=== PATIENT | female | born 1950 | race Two or more races ===

== ENCOUNTER 2022-08-03 21:37 | Emergency (ER) | payer MEDICARE, MEDICAID, SELFPAY ==
[2022-08-03 22:12] VITALS: BP 117/81; PULSE 89; RESP 20; TEMP 36.3; O2SAT 100; BMI 24.0
--- NOTE | 2022-08-03 22:40 | ED_ITS ---
HPI - Altered Mental Status General Chief Complaint: Altered Mental Status Stated Complaint: confused,disoriented Time Seen by Provider: 08/03/22 22:25 Source: family Mode of arrival: ambulatory Limitations: no limitations History of Present Illness HPI narrative: Patient comes to the emergency room accompanied by her daughter. The patient has history of dementia and is unable to provide any history. Patient has no past. The patient's daughter explains that the patient arrived from [place] yesterday. Patient had already been diagnosed with Alzheimer's dementia. Patient's partner could no longer take care of her. Therefore, patient's daughter [place] the patient has been trying to leave the house, her partner. Patient's daughter is requesting additional help for home care. Related Data Previous Rx's Medication Instructions Recorded olanzapine 5 mg tablet 5 mg PO BEDTIME PRN insomnia #14 08/04/22 tabs Allergies Allergy/AdvReac Type Severity Reaction Status Date / Time No Known Allergies Allergy Verified 08/03/22 22:17 Review of Systems Review of Systems: Yes Unobtainable due to mental status (Alzheimer's dementia, patient voices no complaints) REPLACED BY [facility] Past Medical History Medical History (Updated 08/04/22 @ 01:01 by Leanne Lopes MD) Alzheimer's dementia CHF (congestive heart failure) CVA (cerebral vascular accident) Social History Social History Alcohol intake: never Smoked in Last 30 Days: No Use of substances other than those prescribed or required for medical reasons: No Advance Directives: No Advance Directives Information Provided: No Physical Exam ED Vital Signs: Vital Signs - 24 hr 08/03/22 22:12 08/04/22 00:04 Temperature 97.3 F 97.8 F Pulse Rate 89 87 Respiratory Rate 20 20 Blood Pressure 117/81 119/83 Pulse Oximetry 100 100 Oxygen Delivery Method Room Air Room Air BMI result Body Mass Index 24.0 Const Other: Appearance: Alert. Oriented X1. No acute distress. Eyes: Pupils equal, round and reactive to light. ENT: Pharynx normal. Neck: Normal inspection. Neck supple. No lymph nodes noted. No crepitus CVS: Normal heart rate and rhythm. Pulses normal. Normal S1 and S2 Respiratory: No respiratory distress. Breath sounds normal. No Wheezing. No rales Abdomen: Soft and nontender. No rigidity. No distention. Skin: Skin warm and dry. Normal skin color. Normal skin turgor. Extremities: No lower extremity edema. No Lacerations. No Rash Neuro: Oriented X 1. No motor deficit. No sensory deficit. Moving all extremities. No slurred speech. CN 2 through 12 grossly intact Psych: calm, cooperative, normal affect Course Course Course Narrative: -we will obtain basic labs -case management has been informed, consult pending Medical Decision Making Medical Decision Making [facility] Narrative: -case management spoke to the patient, unfortunately, at this time, there is not much that we can do for the patient. Patient does not have insurance. Patient has found a pair of pocket for 15/01 at home care. -patient's daughter agreeable to take the patient home, requesting that we give her medication to help her sleep ears and a prescription for home. -patient will be given olanzapine 5 mg p.o. here in the ED and patient will have a prescription for home. Discussed with the patient's daughter that this medication is not to be given during the day, as it will cause drowsiness and patient is at risk of falling. Differential Diagnosis Differential Diagnoses: The differential diagnosis associated with the presentation includes (Dementia, sundowning, insomnia) Lab Data [facility] Lab Attestation statement: I reviewed the patient's lab results. 08/03/22 23:28 08/03/22 23:28 Labs: Lab Results 08/03/22 08/03/22 08/03/22 Range/Units 23:28 23:28 23:28 WBC 7.0 (4.8-10.8) X10*3/uL RBC 3.05 L (4.20-5.50) X10*6/uL Hgb 9.3 L (12.0-16.0) g/dl Hct 28.9 L (37.0-47.0) % MCV 94.8 (80.0-98.0) fL MCH 30.5 (27.0-33.0) pg MCHC 32.2 (31.0-35.0) g/dl RDW 14.4 (11.0-16.0) % Plt Count 282 (160-400) X10*3/uL MPV 9.5 (9.4-12.3) fL Immature Gran % (Auto) 0.3 (0.0-0.4) % Neut % (Auto) 69.0 (45-73) % Lymph % (Auto) 22.8 (20-40) % [place] % (Auto) 7.2 (2-11) % Eos % (Auto) 0.6 (0-4) % Baso % (Auto) 0.1 (0-2) % Lymph # (Auto) 1.6 (1.2-4.9) X10*3/uL [place] # (Auto) 0.5 (0.1-1.2) X10*3/uL Eos # (Auto) 0.0 (0.0-0.4) X10*3/uL Baso # (Auto) 0.0 (0.0-0.2) X10*3/uL Abs Immat Gran (auto) 0.02 (0.00-0.03) X10*3/uL Absolute Neuts (auto) 4.8 (2.0-8.3) x10*3/uL Absolute Nucleated RBC 0.000 (0.0-0.012) X10*3/uL Nucleated RBC % (auto) 0.0 (0.0-0.2) /100WBC Sodium 139 (135-145) mmol/L Potassium 3.9 (3.3-5.1) mmol/L Chloride 104 (96-108) mmol/L Carbon Dioxide 23 (22-29) mmol/L Anion Gap 16 (12-20) BUN 21 H (9-16) mg/dL Creatinine 1.10 (0.5-1.4) mg/dL Estim Creat Clear Calc 36.2 Estimated GFR 49 Random Glucose 133 H (60-115) mg/dL Calcium 9.5 (8.4-10.2) mg/dL Total Bilirubin 0.4 (0.0-1.0) mg/dL Direct Bilirubin < 0.2 (0.0-0.5) mg/dL AST 15 (5-31) U/L ALT 10 (0-31) U/L Alkaline Phosphatase 62 (39-117) U/L Total Protein 6.8 (6.5-8.0) g/dL Albumin 4.2 (3.5-5.0) g/dL Urine Color Dark Yellow Urine Appearance Clear Urine pH 5.5 (5.0-9.0) Ur Specific [place] >= 1.030 H (1.005-1.025) Urine Protein 30 (1+) H (Neg-Trace) mg/dL Urine Glucose (UA) Negative (Negative) mg/dL Urine Ketones Trace (Negative) mg/dL Urine Blood Negative (Negative) Urine Nitrite Negative (Negative) Ur Leukocyte Esterase Trace H (Negative) Urine RBC 0-2 (0-2) /HPF Urine WBC 0-5 (0-5) /HPF Ur Squamous Epith Cells 0-2 (0-2) /HPF Urine Bacteria None Seen (None Seen) Hyaline Casts 3-5 (0-2) /LPF Discharge Plan Discharge Clinical Impression: Dementia, Insomnia Patient Disposition: Home, Self-Care Instructions: Dementia (ED), Insomnia (ED) Additional Instructions: Please follow-up with your primary care physician tomorrow. If you have any worsening or new symptoms, please return to the emergency room or call 911 Prescriptions: New olanzapine 5 mg tablet 5 mg PO BEDTIME PRN (Reason: insomnia) Qty: 14 0RF
--- NOTE | 2022-08-03 23:19 | PC.NURSE ---
pt comes in with daughter; has dementia but pt states she has gotten worse
--- NOTE | 2022-08-03 23:25 | MHC.CM.ED ---
Met with patient at request of Dr. Lopes. Pt has advanced dementia. Daughter, Brooke went to [place] yesterday to get her mother. States he mother's long time partner could no longer take care of her. Pt was wandering outside and police were summoned many times in [place] the [place] last [place]02. Daughter states her mother is very confused, doesn't know her and is constantly looking for her partner. Trying to leave the house. Daughter tells CM she had emergency first appointment with Dr. Alma Márquez in [place] today, but she had to pay and the doctor told her he has to review her records and would try to complete his review by Sunday. Daughter comes to the requesting help at home. Is not sure she can care for her mother at home. States she has to work on Sunday. Explained to daughter that her mother would need Medicare in the and [employer]. Patient has Medicare from [place]. Explained that she would need to hire private pay [employer] WORKER's at this point to help at home, and that none of this happens immediately. It takes time. Explained that the [facility] needs a medical reason to see patients, and they do not provide [employer] WORKER's either. Given brochure for financial services. Daughter requesting psych to order some medications for her mother. Explained that no medications will really help her mother's Alzheimer's. Perhaps medications might help with sleep and aggression, but it's unclear. Dr. Lopes is aware of above conversation. Will complete medical workup and labs and will speak with daughter. CM will follow for any discharge needs.
[2022-08-03 23:33] LABS: MANUAL DIFF FLAG NO
[2022-08-03 23:35] LABS: Basophils Percent Auto 0.1 % (0-2); Eosinophils Percent Auto 0.6 % (0-4); Hematocrit 28.9 % (37.0-47.0); Hemoglobin 9.3 g/dl (12.0-16.0); Imm Gran Abs Auto 0.02 X10*3/uL (0.00-0.03); Imm Gran Pct Auto 0.3 % (0.0-0.4); Lymphocytes Absolute Auto 1.6 X10*3/uL (1.2-4.9); Lymphocytes Percent Auto 22.8 % (20-40); Mean Corpuscular HGB Conc 32.2 g/dl (31.0-35.0); Mean Corpuscular Hemoglobin 30.5 pg (27.0-33.0); Mean Corpuscular Volume 94.8 fL (80.0-98.0); Mean Platelet Volume 9.5 fL (9.4-12.3); Monocytes Absolute Auto 0.5 X10*3/uL (0.1-1.2); Monocytes Percent Auto 7.2 % (2-11); Neutrophils Absolute Auto 4.8 x10*3/uL (2.0-8.3); Platelet Count 282 X10*3/uL (160-400); Red Blood Count 3.05 X10*6/uL (4.20-5.50); Red Cell Distribution Width 14.4 % (11.0-16.0)
[2022-08-03 23:48] LABS: Appearance Urine Clear; Color Urine Dark Yellow; Glucose Urine UA Negative (Negative); Leukocyte Esterase Urine Trace (Negative); Nitrite Urine Negative (Negative); PH 5.5 (5.0-9.0); Specific Gravity - Urine >= 1.030 (1.005-1.025); UMIC TRIGGER UACC YES; Urine Blood Negative (Negative); Urine Ketones Trace mg/dL (Negative); Urine Protein 30 (1+) mg/dL (Neg-Trace)
[2022-08-03 23:53] LABS: Alanine Aminotransferase 10 U/L (0-31); Albumin Level 4.2 g/dL (3.5-5.0); Alkaline Phosphatase 62 U/L (39-117); Anion Gap 16 (12-20); Aspartate Amino Transferase 15 U/L (5-31); Bilirubin Direct < 0.2 mg/dL (0.0-0.5); Bilirubin Total 0.4 mg/dL (0.0-1.0); Blood Urea Nitrogen 21 mg/dL (9-16); Calcium 9.5 mg/dL (8.4-10.2); Carbon Dioxide 23 mmol/L (22-29); Chloride 104 mmol/L (96-108); Creatinine Clr Calc Pharmacy 36.2; Estimated Glomerular Filt Rate 49; Glucose Random 133 mg/dL (60-115); Potassium 3.9 mmol/L (3.3-5.1); Sodium 139 mmol/L (135-145); Total Protein 6.8 g/dL (6.5-8.0)
[2022-08-04 00:04] VITALS: BP 119/83; PULSE 87; RESP 20; TEMP 36.6; O2SAT 100
[2022-08-04 00:14] LABS: Bacteria Urine None Seen (None Seen); RBC Urine 0-2 /HPF (0-2); Squamous Epithelial Cell Urine 0-2 /HPF (0-2); WBC Urine 0-5 /HPF (0-5)
--- NOTE | 2022-08-04 00:17 | PC.NURSE ---
pt keeps wandering throughout the dept and has to be redirected to her bed
[2022-08-04] MEDS: OLANZapine 5 MG TABLET PO (01:05)
== END 2022-08-04 01:10 | disposition home or self-care (01) ==
PROVIDERS: Emergency Provider Emergency Medicine; PCP Internal Medicine
DX: G30.9 Alzheimer's disease, unspecified (principal); F02.80 Dementia in other diseases classified elsewhere, unspecified severity, without behavioral disturbance, psychotic disturbance, mood disturbance, and anxiety; G47.00 Insomnia, unspecified; I50.9 Heart failure, unspecified; Z86.73 Personal history of transient ischemic attack (TIA), and cerebral infarction without residual deficits
CPT/HCPCS: 36415; 51701; 80048; 80076; 81001; 85025; 99284

== ENCOUNTER 2025-05-12 11:33 | Inpatient (IN) | payer OTHER, SELFPAY ==
--- NOTE | ~2025-05-12 | CT_ITS ---
EXAMINATION: CT ABDOMEN AND PELVIS WITHOUT CONTRAST CLINICAL INFORMATION: Dehydration, not eating or drinking, vomiting. 75-year-old female. COMPARISON: None available. TECHNIQUE: Multidetector volumetric imaging was performed from the superior aspect of the liver through the pubic symphysis. Sagittal and coronal reformatted images were obtained on the technologist's workstation. This CT examination was performed using dose optimization techniques as appropriate, variously including the following: *Automated exposure control *Adjustment of mA and/or kV according to patient size (this includes techniques or standardized protocols for targeted exams where dose is matched to indication/reason for exam; i.e. extremities or head) *Use of iterative reconstruction technique FINDINGS: LUNG BASES: Lung bases are grossly clear allowing for mild motion artifact. There is mild elevation of the left hemidiaphragm. There is borderline cardiac enlargement. There are moderate coronary calcifications. There is no pericardial effusion. There is a small type hiatus hernia. LIVER, GALLBLADDER, AND BILIARY TREE: The unenhanced liver demonstrates numerous cysts, the largest in the right hepatic lobe measuring 6.7 x 5.1 cm in axial plane. No definite suspicious focal hepatic lesion or biliary ductal dilatation is present. The main portal vein is somewhat prominent suggesting possible portal hypertension. The gallbladder is unremarkable with no evidence of radiopaque gallstones, gallbladder wall thickening, or obvious pericholecystic inflammatory changes. PANCREAS: Unremarkable. SPLEEN: There are tiny punctate granulomata. Unenhanced spleen is otherwise normal. ADRENAL GLANDS: Unremarkable. KIDNEYS AND URETERS: The kidneys are normal in size, shape, and attenuation. No hydronephrosis, hydroureter, or calculi seen. No perinephric stranding. In the lower pole of the left kidney, there is a large cyst measuring 6.1 x 5.6 cm in axial plane. 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 There is a hyperattenuating cyst in the left lateral kidney midpole measuring 1.3 cm. BLADDER: Unremarkable. GASTROINTESTINAL TRACT: There is moderate constipation throughout the colon and rectum. There is no pathologic bowel dilatation appreciated. Probable small type I hiatus hernia. Stomach is largely decompressed. Duodenal sweep is unremarkable. Small bowel is grossly normal in caliber and course. No definite wall thickening or gross inflammation allowing for noncontrast examination. There is no CT evidence of acute appendicitis. There is a mobile cecum present. There is scattered diverticulosis of colon present. ABDOMINAL WALL: No significant hernia is appreciated. LYMPH NODES: No abnormal lymphadenopathy. VASCULAR: Moderate to heavy calcification of the aorta and iliac arteries, without aneurysm. PELVIC VISCERA: Senescent uterus. No adnexal masses. OSSEOUS STRUCTURES: No suspicious lytic or blastic bone lesions. Mild degenerative changes of the spine and bilateral hip joints. CT/CT abdomen pelvis wo IV con IMPRESSION: 1. No acute findings in the abdomen or pelvis. 2. Moderate constipation. 3. Numerous ancillary findings as discussed in the body of the report. Electronically signed by: Francisco Harrison MD 05/12/2025 02:08 PM SRINIVAS
--- NOTE | ~2025-05-12 | US_ITS ---
EXAMINATION: US ABDOMEN LIMITED CLINICAL INFORMATION: Elevated liver enzymes. COMPARISON: Correlated to noncontrast CT abdomen and pelvis dated May 12, 2025. TECHNIQUE: Real-time ultrasound of the right upper quadrant abdomen using a scalpel technique. Limited exam. FINDINGS: Liver measures 17 cm in maximum length. There are multiple, different sizes, round and lobulated anechoic lesions without gross septations or nodular components or flow on color Doppler interrogation throughout the hepatic parenchyma, the largest measures 7 cm. Main portal vein measures 1.5 cm in maximum diameter with normal patency and hepatopedal flow direction. Gallbladder is fluid-filled nondistended. Gallbladder wall measures 2.6 mm. No pericholecystic fluid collection. Common bile duct measures 4 mm. No ascites. US/US abdomen limited IMPRESSION: Multiple cystic lesions, hepatic, largest 7 cm. No gross cholelithiasis or choledocholithiasis. Recommend further imaging assessment of the liver with IV contrast either CT versus MRI. Electronically signed by: Franco Mobley MD 05/13/2025 03:31 PM EST
--- NOTE | ~2025-05-12 | XR_ITS ---
EXAMINATION: XR CHEST CLINICAL INFORMATION: Weakness COMPARISON: None available. TECHNIQUE: Frontal view of the chest was obtained. FINDINGS: The cardiac, hilar, and mediastinal contours are normal. Mild aortic mural calcification. The lungs are clear bilaterally. No pneumothorax or effusion. No focal osseous or soft tissue abnormality. XR/XR chest 1V IMPRESSION: No active pulmonary disease. Electronically signed by: Francisco Harrison MD 05/12/2025 01:34 PM EST
[2025-05-12 11:48] VITALS: BP 125/78; PULSE 85; RESP 18; TEMP 36.6; O2SAT 98; BMI 25.8
--- NOTE | 2025-05-12 11:48 | ED.GENADULT ---
HPI - General Adult General Chief complaint: Recheck/Abnormal Lab/Rx Stated complaint: Abnormal Labs Time Seen by Provider: 05/12/25 12:23 Source: patient, family and old records reviewed Mode of arrival: ambulatory Limitations: other (Dementia) History of Present Illness ED Provider: SHAN DANIELS narrative: 75-year-old female with past medical history of dementia, CVA, CHF, rectal bleeding here with complaint of not feeling well for 1 week. She has not been eating or drinking much but only sleeping for family. She did vomit at her adult day program yesterday. But then she had a full normal breakfast today. Her family notes no recent trauma, fevers. They state if she was in pain she would not be able to express it. She saw her PCP on May 06 they did labs but did not call until today and the family was told she was in kidney failure and liver failure. They did have the patient hold metformin. The daughter states given the dementia it is hard to get any other symptoms from her. complaint: Abnormal lab Onset (ago): day(s) (Visit was on May 06) Radiation: non-radiation Severity: moderate Relieving factors: none Exacerbating factors: movement Associated symptoms: loss of appetite, malaise and weakness Treatments prior to arrival: none Related Data Home Medications ?Medication ?Instructions ?Recorded ?Confirmed Kimberly Nugents Kidz 2 gummy PO BEDTIME PRN Sleep 05/12/25 05/12/25 amlodipine 5 mg tablet 5 mg PO DAILY 05/12/25 05/12/25 dapagliflozin propanediol 10 mg 10 mg PO DAILY 05/12/25 05/12/25 tablet (Farxiga) docusate sodium 100 mg capsule 100 mg PO BID PRN Constipation 05/12/25 05/12/25 donepezil 10 mg tablet 10 mg PO BEDTIME 05/12/25 05/12/25 ferrous sulfate 325 mg (65 mg 325 mg PO Q2D@0900 05/12/25 05/12/25 iron) tablet memantine 5 mg tablet 5 mg PO BID 05/12/25 05/12/25 metoprolol succinate 50 mg 50 mg PO DAILY 05/12/25 05/12/25 tablet,extended release 24 hr pantoprazole 40 mg tablet,delayed 40 mg PO DAILY 05/12/25 05/12/25 release quetiapine 25 mg tablet 25 mg PO BID@0900,2100 05/12/25 05/12/25 quetiapine 50 mg tablet 50 mg PO BEDTIME 05/12/25 05/12/25 rosuvastatin 20 mg tablet 20 mg PO BEDTIME 05/12/25 05/12/25 vibegron 75 mg tablet (Gemtesa) 75 mg PO DAILY 05/12/25 05/12/25 Allergies Allergy/AdvReac Type Severity Reaction Status Date / Time No Known Allergies Allergy Verified 05/12/25 11:50 Review of Systems Review of Systems: ROS unable to be obtained due to dementia [facility] Past Medical History Attestation statement: The following information was validated with the patient. Source: old records reviewed Medical History CHF (congestive heart failure) CVA (cerebral vascular accident) Alzheimer's dementia Social History Social History Household Members: Unknown / Unable to assess Housing: Unknown / Unable to assess Alcohol intake: never Patient Tobacco Use Status: Never used Tobacco Smoked in Last 30 Days: No Use of substances other than those prescribed or required for medical reasons: No Advance Directives: Yes Advance Directives Information Provided: Yes Advance Directives on File: No Advance Directives Date on File: 05/12/25 Do you have a plan to hurt others: No Plan Recently lost weight without trying: Unsure Nutrition Risks: No Nutritional Risk Patient : No : No Poor oral hygiene: No Physical Exam ED Vital Signs: Vital Signs - 24 hr 05/12/25 11:48 05/12/25 12:21 05/12/25 15:44 Temperature 98 F 99.1 F 97.4 F Pulse Rate 85 81 89 Respiratory Rate 18 14 18 Blood Pressure 125/78 144/81 H 140/93 H Pulse Oximetry 98 96 99 Oxygen Delivery Method Room Air Room Air Room Air 05/12/25 18:41 Temperature 98.6 F Pulse Rate 68 Respiratory Rate 11 L Blood Pressure 141/94 H Pulse Oximetry 99 Oxygen Delivery Method Room Air BMI result Body Mass Index 25.8 Appearance: Alert. Confused No acute distress. Eyes: Pupils equal, round and reactive to light. ENT: Pharynx dry mucous membranes Neck: Normal inspection. Neck supple. CVS: Normal heart rate and rhythm. Pulses normal. Respiratory: No respiratory distress. Breath sounds normal. Abdomen: Soft and nontender. Skin: Skin warm and dry. Normal skin color. Extremities: No lower extremity edema. Neuro: Confused No motor deficit. No sensory deficit. Course Course Course Narrative: This is an RME: Additional HPI, ROS, PE not included below will be deferred to primary provider. RME assessment and note performed by: Cristine Pritchard PA-C This is a [id number]-female, with a hx of advanced stage dementia, diabetes on metformin and farxiga, HLD, CVA, who presents to the ER, accompanied by her daughter, with a complaint of abnormal labs. Was told that she was in liver and kidney failure. Was at a day program yesterday and had an episode of nausea and vomiting. Plan: Labs, EKG, further ER eval needed Reevaluation(s) Reevaluation #1: Her BMP hemolyzed I did sign out repeat BMP follow up Dr. Lopes at 16:00 Medications Administered Generic Name Dose Route Start Last Admin Trade Name Freq PRN Reason Stop Dose Admin Atorvastatin Calcium 80 mg 05/12/25 22:25 05/12/25 22:35 Atorvastatin Calcium 80 Mg Tablet PO 80 mg BEDTIME SHAKEEL Administration Donepezil HCl 10 mg 05/12/25 22:25 05/12/25 22:40 Donepezil Hcl 10 Mg Tablet PO 10 mg BEDTIME SHAKEEL Administration Heparin Sodium (Porcine) 5,000 unit 05/12/25 19:45 05/13/25 02:55 Heparin Sodium,Porcine 5,000 Unit/Ml Vial SUBCUT 5,000 unit Q8H SHAKEEL Administration Lactated Ringer's 1,000 mls @ 100 mls/hr 05/12/25 19:45 05/13/25 06:09 Lr IVCONT 100 mls/hr .Q10H SHAKEEL Administration Melatonin 6 mg 05/12/25 19:39 05/12/25 22:35 Melatonin 3 Mg Tablet PO 6 mg BEDTIME PRN Administration Insomnia Memantine 5 mg 05/12/25 22:25 05/12/25 22:35 Memantine Hcl 5 Mg Tablet PO 5 mg BID SHAKEEL Administration Omeprazole 20 mg 05/13/25 06:30 05/13/25 05:48 Omeprazole 20 Mg Capsule. PO Not Given DAILY@0630 SHAKEEL Quetiapine Fumarate 25 mg 05/12/25 22:25 05/12/25 22:35 Quetiapine Fumarate 25 Mg Tablet PO 25 mg BID@0900,2100 SHAKEEL Administration Sodium Chloride 3 ml 05/13/25 00:00 05/13/25 00:09 0.9 % Sodium Chloride Flush 3 Ml Syringe IVFLUSH Not Given QSHIFT SHAKEEL Discontinued Medications Generic Name Dose Route Start Last Admin Trade Name Davonte PRN Reason Stop Dose Admin Lactated Ringer's 1,000 mls @ 999 mls/hr 05/12/25 12:55 05/12/25 14:17 Lr IV 05/12/25 13:55 Infused .Q1H1M ONE Infusion Lactated Ringer's 1,000 mls @ 999 mls/hr 05/12/25 13:54 05/12/25 14:59 Lr IV 05/12/25 14:54 Infused .Q1H1M ONE Infusion Lactulose 20 gm 05/12/25 15:09 05/12/25 15:36 Lactulose 20 Gm/30 Ml Solution PO 05/12/25 15:10 20 gm ONCE ONE Administration Olanzapine 10 mg 05/12/25 13:18 05/12/25 13:21 Olanzapine Odt 10 Mg Tab.Rapdis TRANSLINGU 05/12/25 13:19 10 mg ONCE ONE Administration Olanzapine 5 mg 05/13/25 02:22 05/13/25 02:53 Olanzapine 10 Mg Vial IM 05/13/25 02:23 5 mg ONCE ONE Administration Medical Decision Making Medical Decision Making MDM Narrative: 75-year-old female with past medical history of dementia, CVA, CHF here with complaint of failure to thrive over the last week, she is not eating or drinking much. She did vomit yesterday but then ate a full breakfast today. She is unable to tell us she is in any pain. She was sent for liver failure and renal failure I agree she has DEDE but there is no suggestion of liver failure on exam. At this time I am going to start her on IV fluids, obtain CT scan of abdomen to assess for any acute pathology causing her symptoms, she will also get a CPK level. Given her inability to give a history there is a wide differential I received sign-out from my colleague Dr. Donovan After 2 L of IV fluid, patient's creatinine did not improve much. Patient reports that she had an episode of vomiting yesterday. However, the labs indicated that she has a acute kidney injury were drawn over a week ago and even with IV fluids, she did not respond well. I discussed the patient with our hospitalist Dr. Mckinney, patient being admitted I discussed the above-mentioned with the patient's family, all agree to admission. Differential Diagnosis Differential Diagnoses: The differential diagnosis associated with the presentation includes DEDE, biliary colic, urinary pathology, mass, failure to thrive, urinary Admission/Observation Consideration of admission/observation: Escalation of care including admission/observation considered Lab Data MDM Lab Attestation statement: I reviewed the patient's lab results. She does have mild DEDE She has normal CPK, she has no urinary tract infection 05/13/25 05:43 05/13/25 05:43 Labs: Lab Results 05/12/25 05/12/25 05/12/25 Range/Units 12:08 12:51 15:33 WBC 4.7 L (4.8-10.8) X10*3/uL RBC 3.49 L (4.20-5.50) X10*6/uL Hgb 10.7 L (12.0-16.0) g/dl Hct 33.2 L (37.0-47.0) % MCV 95.1 (80.0-98.0) fL MCH 30.7 (27.0-33.0) pg MCHC 32.2 (31.0-35.0) g/dl RDW 14.6 (11.0-16.0) % Plt Count 148 L D (160-400) X10*3/uL MPV 10.1 (9.4-12.3) fL Immature Gran % (Auto) 0.4 (0.0-0.4) % Neut % (Auto) 61.4 (45-73) % Lymph % (Auto) 31.6 (20-40) % [place] % (Auto) 5.8 (2-11) % Eos % (Auto) 0.6 (0-4) % Baso % (Auto) 0.2 (0-2) % Lymph # (Auto) 1.5 (1.2-4.9) X10*3/uL [place] # (Auto) 0.3 (0.1-1.2) X10*3/uL Eos # (Auto) 0.0 (0.0-0.4) X10*3/uL Baso # (Auto) 0.0 (0.0-0.2) X10*3/uL Abs Immat Gran (auto) 0.02 (0.00-0.03) X10*3/uL Absolute Neuts (auto) 2.9 (2.0-8.3) x10*3/uL Absolute Nucleated RBC 0.000 (0.0-0.012) X10*3/uL Nucleated RBC % (auto) 0.0 (0.0-0.2) /100WBC Sodium 140 (135-145) mmol/L Potassium 3.8 (3.3-5.1) mmol/L Chloride 110 H (96-108) mmol/L Carbon Dioxide 24 (22-29) mmol/L Anion Gap 10 L (12-20) BUN 32 H (9-16) mg/dL Creatinine 1.69 H (0.5-1.4) mg/dL Estim Creat Clear Calc 23.3 Estimated GFR 30 Random Glucose 197 H (60-115) mg/dL Calcium 9.0 (8.4-10.2) mg/dL Magnesium 2.2 (1.6-2.6) mg/dL Total Bilirubin 0.5 (0.0-1.0) mg/dL Direct Bilirubin 0.2 (0.0-0.5) mg/dL AST 36 H (5-31) U/L ALT 50 H (0-31) U/L Alkaline Phosphatase 67 (39-117) U/L Total Creatine Kinase 69 (26-140) U/L Troponin I High Sens 16.4 (<3.5-17.0) ng/L Total Protein 6.0 L (6.5-8.0) g/dL Albumin 4.0 (3.5-5.0) g/dL Lipase 50 (8-78) U/L Urine Color Yellow Urine Appearance Clear Urine pH 7.5 (5.0-9.0) Ur Specific [place] 1.015 (1.005-1.025) Urine Protein 30 (1+) H (Neg-Trace) mg/dL Urine Glucose (UA) >=1000 H (Negative) mg/dL Urine Ketones Negative (Negative) mg/dL Urine Blood Negative (Negative) Urine Nitrite Negative (Negative) Ur Leukocyte Esterase Trace H (Negative) Urine RBC 0-2 (0-2) /HPF Urine WBC 6-10 H (0-5) /HPF Ur Squamous Epith Cells 0-2 (0-2) /HPF Urine Bacteria None Seen (None Seen) Hyaline Casts 0-2 (0-2) /LPF Influenza Type A (PCR) NEGATIVE (Negative) Influenza Type B (PCR) NEGATIVE (Negative) RSV RNA Qual (PCR) NEGATIVE (Negative) SARS-CoV-2 RNA (RT-PCR) NEGATIVE (Negative) 05/12/25 Range/Units 16:45 WBC (4.8-10.8) X10*3/uL RBC (4.20-5.50) X10*6/uL Hgb (12.0-16.0) g/dl Hct (37.0-47.0) % MCV (80.0-98.0) fL MCH (27.0-33.0) pg MCHC (31.0-35.0) g/dl RDW (11.0-16.0) % Plt Count (160-400) X10*3/uL MPV (9.4-12.3) fL Immature Gran % (Auto) (0.0-0.4) % Neut % (Auto) (45-73) % Lymph % (Auto) (20-40) % [place] % (Auto) (2-11) % Eos % (Auto) (0-4) % Baso % (Auto) (0-2) % Lymph # (Auto) (1.2-4.9) X10*3/uL [place] # (Auto) (0.1-1.2) X10*3/uL Eos # (Auto) (0.0-0.4) X10*3/uL Baso # (Auto) (0.0-0.2) X10*3/uL Abs Immat Gran (auto) (0.00-0.03) X10*3/uL Absolute Neuts (auto) (2.0-8.3) x10*3/uL Absolute Nucleated RBC (0.0-0.012) X10*3/uL Nucleated RBC % (auto) (0.0-0.2) /100WBC Sodium 142 (135-145) mmol/L Potassium 3.4 (3.3-5.1) mmol/L Chloride 111 H (96-108) mmol/L Carbon Dioxide 24 (22-29) mmol/L Anion Gap 10 L (12-20) BUN 28 H (9-16) mg/dL Creatinine 1.56 H (0.5-1.4) mg/dL Estim Creat Clear Calc 25.2 Estimated GFR 32 Random Glucose 178 H (60-115) mg/dL Calcium 9.0 (8.4-10.2) mg/dL Magnesium (1.6-2.6) mg/dL Total Bilirubin (0.0-1.0) mg/dL Direct Bilirubin (0.0-0.5) mg/dL AST (5-31) U/L ALT (0-31) U/L Alkaline Phosphatase (39-117) U/L Total Creatine Kinase (26-140) U/L Troponin I High Sens (<3.5-17.0) ng/L Total Protein (6.5-8.0) g/dL Albumin (3.5-5.0) g/dL Lipase (8-78) U/L Urine Color Urine Appearance Urine pH (5.0-9.0) Ur Specific [place] (1.005-1.025) Urine Protein (Neg-Trace) mg/dL Urine Glucose (UA) (Negative) mg/dL Urine Ketones (Negative) mg/dL Urine Blood (Negative) Urine Nitrite (Negative) Ur Leukocyte Esterase (Negative) Urine RBC (0-2) /HPF Urine WBC (0-5) /HPF Ur Squamous Epith Cells (0-2) /HPF Urine Bacteria (None Seen) Hyaline Casts (0-2) /LPF Influenza Type A (PCR) (Negative) Influenza Type B (PCR) (Negative) RSV RNA Qual (PCR) (Negative) SARS-CoV-2 RNA (RT-PCR) (Negative) Independent Interpretation I performed an independent interpretation of an: EKG, Plain X-Ray (No pneumonia) and CT Scan (Shows constipation) Interpretation: Rate: 79 Rhythm: Normal sinus Marshall: Left, LVH Normal P waves. Normal PHONG. Normal QRS complex. ST T wave : Normal no ST-elevation qTC: 451 prior studies: No prior The study has been interpreted contemporaneously by me. . Radiology Impression Discussion of test interpretation with radiology: I have reviewed the radiologist's reading. Independent Historian Clinical information obtained from an independent historian. History obtained from or confirmed by: Other (Daughter) External Record Review External record reviewed: Inpatient record, Outpatient record and Prior outpatient labs Critical Care Time Critical Care Time Critical Care Time: Yes Total Critical Care Time: 40 Attestation: I have personally provided critical care time. Time includes review of lab data, radiology results, discussion with consultants, and monitoring for potential decompensation. Intervention performed as documented. Discharge Plan Discharge Clinical Impression: Adult failure to thrive, Acute dehydration Constipation Qualifiers: Constipation type: unspecified constipation type Qualified Code(s): K59.00 - Constipation, unspecified Patient Disposition: Admitted As Inpatient Interventions: Admission Worksheet (ED) Last Done: 05/12/25 23:19 Discharge Date/Time: 05/13/25 01:52
--- NOTE | 2025-05-12 11:50 | ECG_ITS ---
Test Reason : abn labs Blood Pressure : */* mmHG Vent. Rate : 79 BPM Atrial Rate : 79 BPM P-R Int : 172 ms QRS Dur : 100 ms QT Int : 394 ms P-R-T Axes : 34 -30 23 degrees QTcB Int : 451 ms Normal sinus rhythm Left axis deviation Moderate voltage criteria for LVH, may be normal variant ( R in aVL , Nathalie product ) Abnormal ECG No previous ECGs available Referred By: Cristine Pritchard Electronically Signed By: RUPERTO SIMS
[2025-05-12 12:17] LABS: MANUAL DIFF FLAG NO
[2025-05-12 12:21] VITALS: BP 144/81; PULSE 81; RESP 14; TEMP 37.3; O2SAT 96
[2025-05-12 12:28] LABS: Hematocrit 33.2 % (37.0-47.0); Hemoglobin 10.7 g/dl (12.0-16.0); Imm Gran Abs Auto 0.02 X10*3/uL (0.00-0.03); Imm Gran Pct Auto 0.4 % (0.0-0.4); Lymphocytes Absolute Auto 1.5 X10*3/uL (1.2-4.9); Mean Corpuscular HGB Conc 32.2 g/dl (31.0-35.0); Mean Corpuscular Hemoglobin 30.7 pg (27.0-33.0); Mean Corpuscular Volume 95.1 fL (80.0-98.0); NRBC Abs Auto 0.000 X10*3/uL (0.0-0.012); NRBC Pct Auto 0.0 /100WBC (0.0-0.2); Platelet Count 148 X10*3/uL (160-400); Red Blood Count 3.49 X10*6/uL (4.20-5.50); White Blood Count 4.7 X10*3/uL (4.8-10.8)
[2025-05-12 12:33] LABS: Alanine Aminotransferase 50 U/L (0-31); Albumin Level 4.0 g/dL (3.5-5.0); Alkaline Phosphatase 67 U/L (39-117); Anion Gap 10 (12-20); Aspartate Amino Transferase 36 U/L (5-31); Blood Urea Nitrogen 32 mg/dL (9-16); Calcium 9.0 mg/dL (8.4-10.2); Carbon Dioxide 24 mmol/L (22-29); Chloride 110 mmol/L (96-108); Creatinine Clr Calc Pharmacy 23.3; Estimated Glomerular Filt Rate 30; Lipase 50 U/L (8-78); Magnesium 2.2 mg/dL (1.6-2.6); Potassium 3.8 mmol/L (3.3-5.1); Sodium 140 mmol/L (135-145); Total Protein 6.0 g/dL (6.5-8.0)
[2025-05-12 12:40] LABS: Troponin-I High Sensitivity 16.4 ng/L (<3.5-17.0)
[2025-05-12] MEDS: Lactated Ringers 1,000 ML 999 ML IV ×2 (13:16→13:58)
--- NOTE | 2025-05-12 13:17 | PC.NURSE ---
Addendum entered by Tessa Méndez RN 05/12/25 13:22: pt unable to have CT completed d/t restlessness. provider notified/aware. ODT zyprexa administered w/o difficulty. effectiveness pending. daughter remains bedside. Original Note: 20gIV placed to right forearm - wrapped w/ curex for safety precautions. IVF infusing per provider order. pt remains extremely restless/attempting to get OOB w/o assistance. difficult to redirect. daughter remains bedside for support. plan of care ongoing.
[2025-05-12] MEDS: OLANZapine ODT 10 MG TAB.RAPDIS TRANSLINGU (13:21)
[2025-05-12 13:33] LABS: Resp Syncy Virus RNA Qual PCR NEGATIVE (Negative); SARS COV2 PCR INHOUSE NEGATIVE (Negative)
[2025-05-12 15:44] VITALS: BP 140/93; PULSE 89; RESP 18; TEMP 36.3; O2SAT 99
[2025-05-12 15:44] LABS: Appearance Urine Clear; Glucose Urine UA >=1000 mg/dL (Negative); PH 7.5 (5.0-9.0); Specific Gravity - Urine 1.015 (1.005-1.025); UMIC TRIGGER UACC YES
[2025-05-12 15:49] LABS: UACC Culture Trigger YES
[2025-05-12 17:05] LABS: Anion Gap 10 (12-20); Blood Urea Nitrogen 28 mg/dL (9-16); Calcium 9.0 mg/dL (8.4-10.2); Carbon Dioxide 24 mmol/L (22-29); Chloride 111 mmol/L (96-108); Creatinine Clr Calc Pharmacy 25.2; Estimated Glomerular Filt Rate 32; Potassium 3.4 mmol/L (3.3-5.1); Sodium 142 mmol/L (135-145)
[2025-05-12 18:41] VITALS: BP 141/94; PULSE 68; RESP 11; TEMP 37; O2SAT 99
--- NOTE | 2025-05-12 19:41 | PM.IMHP ---
History of Present Illness Date of Service: 05/12/25 Chief Complaint: abnormal labs 75-year-old female with a past medical history of history, HLD, dementia, CVA, CHF, history of GI bleed; presented to the hospital with a chief complaint of abnormal labs noted the PCP's office. Per family patient was not feeling well yesterday; at the daycare patient had an episode of vomiting. Denies having any pain. Patient at baseline has dementia and nonverbal; mental status currently at baseline. Went to her PCP's office and has labs done noted to have elevated creatinine subsequently asked her to go to the ER for further evaluation. Review of all other systems is limited. Patient is alert and awake and lying in the bed comfortable. ER course: Per ER team, patient's exam was benign; on labs noted have elevated creatinine; also has liver enzymes slightly elevated above upper normal limits. [facility] Medical History CHF (congestive heart failure) CVA (cerebral vascular accident) Alzheimer's dementia Social History Household Members: Unknown / Unable to assess Housing: Unknown / Unable to assess Alcohol intake: never Patient Tobacco Use Status: Never used Tobacco Smoked in Last 30 Days: No Use of substances other than those prescribed or required for medical reasons: No Advance Directives: Yes Advance Directives Information Provided: Yes Advance Directives on File: No Advance Directives Date on File: 05/12/25 Do you have a plan to hurt others: No Plan Recently lost weight without trying: Unsure Nutrition Risks: No Nutritional Risk Patient : No : No Poor oral hygiene: No Meds Allergies Allergy/AdvReac Type Severity Reaction Status Date / Time No Known Allergies Allergy Verified 05/12/25 11:50 Home Medications ?Medication ?Instructions ?Recorded ?Confirmed ?Last Taken ?Type Leodanks Pure Zzzs Kidz 2 gummy PO BEDTIME PRN Sleep 05/12/25 05/12/25 05/11/25 History amlodipine 5 mg tablet 5 mg PO DAILY 05/12/25 05/12/25 05/12/25 History dapagliflozin propanediol 10 mg 10 mg PO DAILY 05/12/25 05/12/25 05/12/25 History tablet (Farxiga) docusate sodium 100 mg capsule 100 mg PO BID PRN Constipation 05/12/25 05/12/25 Unknown History donepezil 10 mg tablet 10 mg PO BEDTIME 05/12/25 05/12/25 05/11/25 History ferrous sulfate 325 mg (65 mg 325 mg PO Q2D@0900 05/12/25 05/12/25 05/12/25 History iron) tablet memantine 5 mg tablet 5 mg PO BID 05/12/25 05/12/25 05/12/25 History metoprolol succinate 50 mg 50 mg PO DAILY 05/12/25 05/12/25 05/12/25 History tablet,extended release 24 hr pantoprazole 40 mg tablet,delayed 40 mg PO DAILY 05/12/25 05/12/25 05/12/25 History release quetiapine 25 mg tablet 25 mg PO BID@0900,2100 05/12/25 05/12/25 05/12/25 History quetiapine 50 mg tablet 50 mg PO BEDTIME 05/12/25 05/12/25 05/11/25 History rosuvastatin 20 mg tablet 20 mg PO BEDTIME 05/12/25 05/12/25 05/11/25 History vibegron 75 mg tablet (Gemtesa) 75 mg PO DAILY 05/12/25 05/12/25 05/12/25 History Physical Exam Vital Signs and Narrative: Vital Signs: Last Vital Signs Temp 98.6 F 05/12/25 18:41 Pulse 68 05/12/25 18:41 Resp 11 L 05/12/25 18:41 BP 141/94 H 05/12/25 18:41 Pulse Ox 99 05/12/25 18:41 O2 Del Method Room Air 05/12/25 18:41 BMI result Body Mass Index 25.8 Gen: Appears be in no acute distress HEENT: NCAT, Moist mucosa. Pulmonary: Vesicular breath sounds, fair air entry CVS: Normal S1-S2 Abdomen: BS+, Soft, Nontender Extremities: Warm well perfused Neuro: Alert and awake. Results Labs 05/12/25 12:08 05/12/25 16:45 Labs: Laboratory Results - last 24 hr 05/12/25 05/12/25 05/12/25 12:08 12:51 15:33 MCV 95.1 MCH 30.7 MCHC 32.2 RDW 14.6 Plt Count 148 L D MPV 10.1 Immature Gran % (Auto) 0.4 Neut % (Auto) 61.4 Lymph % (Auto) 31.6 [place] % (Auto) 5.8 Eos % (Auto) 0.6 Baso % (Auto) 0.2 Lymph # (Auto) 1.5 [place] # (Auto) 0.3 Eos # (Auto) 0.0 Baso # (Auto) 0.0 Abs Immat Gran (auto) 0.02 Absolute Neuts (auto) 2.9 Absolute Nucleated RBC 0.000 Nucleated RBC % (auto) 0.0 Anion Gap 10 L Estim Creat Clear Calc 23.3 Estimated GFR 30 Random Glucose 197 H Calcium 9.0 Magnesium 2.2 Total Bilirubin 0.5 Direct Bilirubin 0.2 AST 36 H ALT 50 H Alkaline Phosphatase 67 Total Creatine Kinase 69 Troponin I High Sens 16.4 Total Protein 6.0 L Albumin 4.0 Lipase 50 Urine Color Yellow Urine Appearance Clear Urine pH 7.5 Ur Specific [place] 1.015 Urine Protein 30 (1+) H Urine Glucose (UA) >=1000 H Urine Ketones Negative Urine Blood Negative Urine Nitrite Negative Ur Leukocyte Esterase Trace H Urine RBC 0-2 Urine WBC 6-10 H Ur Squamous Epith Cells 0-2 Urine Bacteria None Seen Hyaline Casts 0-2 Influenza Type A (PCR) NEGATIVE Influenza Type B (PCR) NEGATIVE RSV RNA Qual (PCR) NEGATIVE SARS-CoV-2 RNA (RT-PCR) NEGATIVE 05/12/25 16:45 MCV MCH MCHC RDW Plt Count MPV Immature Gran % (Auto) Neut % (Auto) Lymph % (Auto) [place] % (Auto) Eos % (Auto) Baso % (Auto) Lymph # (Auto) [place] # (Auto) Eos # (Auto) Baso # (Auto) Abs Immat Gran (auto) Absolute Neuts (auto) Absolute Nucleated RBC Nucleated RBC % (auto) Anion Gap 10 L Estim Creat Clear Calc 25.2 Estimated GFR 32 Random Glucose 178 H Calcium 9.0 Magnesium Total Bilirubin Direct Bilirubin AST ALT Alkaline Phosphatase Total Creatine Kinase Troponin I High Sens Total Protein Albumin Lipase Urine Color Urine Appearance Urine pH Ur Specific [place] Urine Protein Urine Glucose (UA) Urine Ketones Urine Blood Urine Nitrite Ur Leukocyte Esterase Urine RBC Urine WBC Ur Squamous Epith Cells Urine Bacteria Hyaline Casts Influenza Type A (PCR) Influenza Type B (PCR) RSV RNA Qual (PCR) SARS-CoV-2 RNA (RT-PCR) Imaging Radiologist's Impressions: Impressions Chest X-Ray 05/12/25 13:20 IMPRESSION: No active pulmonary disease. Electronically signed by: Francisco Harrison MD 05/12/2025 01:34 PM EST RP Abdomen/Pelvis CT 05/12/25 13:34 IMPRESSION: 1. No acute findings in the abdomen or pelvis. 2. Moderate constipation. 3. Numerous ancillary findings as discussed in the body of the report. Electronically signed by: Francisco Harrison MD 05/12/2025 02:08 PM EST RP Assessment and Plan (1) DEDE (acute kidney injury): Status: Acute Plan 75-year-old female with a past medical history of history, HLD, dementia, CVA, CHF, history of GI bleed; presented to the hospital with a chief complaint of abnormal labs noted the PCP's office. Admitted for following DEDE:Likely prerenal. Gentle IV fluids. Avoid nephrotoxins Dementia: Mental status at baseline. Continue home donepezil, memantine, quetiapine. Delirium precautions Transaminitis: Will obtain right upper quadrant ultrasound, acute hepatitis panel. Hypertension: Resume home amlodipine Diet: Patient requires feeding assistance. Aspiration precautions. MUNITIONS HANDLER evaluation. Regular diet. DVT prophylaxis: Subcu heparin Code status: DNR/DNI Quality Stroke Does the patient have a stroke diagnosis?: No VTE Prior VTE?: No VTE Risk Level:: Medical - moderate - high VTE Device Contraindication: Treatment Not Indicated VTE Drug Contraindication: N/A - Med Ordered
[2025-05-12] MEDS: Lactated Ringers 1,000 ML 100 ML IVCONT (20:09)
--- NOTE | 2025-05-12 20:20 | PC.NURSE ---
pt restless, daughter at bedside.
--- NOTE | 2025-05-12 21:06 | PHA.MEDREC ---
Addendum entered by Herminio Parker [facility] 05/13/25 09:50: called and spoke with daughter to confirm Seroquel dosing. Pt takes 25mg in morning and 75mg at bed time (50mg tab + 25 mg tab) Original Note: Pharmacy Consult ? Medication Reconciliation Pharmacy has completed the medication reconciliation.
--- NOTE | 2025-05-12 22:19 | PC.NURSE ---
med req completed by pharmacy with son and daughter in law. awaiting provider signature so that this RN can medicate pt with her bed time mediations. awaiting orders.
[2025-05-12 22:57] VITALS: BP 160/86; PULSE 67; RESP 18; TEMP 37; O2SAT 96
--- NOTE | 2025-05-12 22:58 | PC.NURSE ---
Addendum entered by Leanne Keita RN 05/12/25 22:58: camera in pt room and bed alarm intact. Original Note: pt medicated per MAR, son and daughter in law went home for the evening.
--- NOTE | 2025-05-13 00:06 | PC.NURSE ---
pt restless, porcelain technician walking pt for 5 minutes and then wheeling pt in wheelchair. pt calm and cooperative.
--- NOTE | 2025-05-13 00:33 | PC.NURSE ---
pt extremely restless, advised provider, awaiting new orders.
[2025-05-13 01:47] VITALS: BMI 26.5
[2025-05-13 01:55] VITALS: BP 149/85; PULSE 79; RESP 16; TEMP 36.1; O2SAT 98
[2025-05-13] MEDS: OLANZapine 10 MG VIAL 5 MG IM (02:53)
--- NOTE | 2025-05-13 04:02 | PC.NURSE ---
Late entry: Upon arriving to unit at 02:00, pt was restless, confused A&Ox0, unable to stay in bed, impulsive, agitated. glass etcher at bedside, pt is French speaking only, Hx of dementia. This RN informed the nurse discharge about getting an sitter for pt. Pt came up from the ED with an camera for her confusion and safety. An sitter was placed at pt's bedside. This RN notified the generation engineering technologist hospitalist MILY Hudson about the pt's behavior. One time dose of Zyprexa IM 5mg was ordered and administered to pt w/ good effect, see MAR. Pt is less restless, resting in bed in lowest position,respirations even and unlabored, call murillo within reach with sitter & camera in room. Will continue to monitor pt's behavior.
[2025-05-13] MEDS: Lactated Ringers 1,000 ML 100 ML IVCONT ×2 (06:09→16:23)
[2025-05-13 06:14] LABS: MANUAL DIFF FLAG NO
[2025-05-13 06:17] LABS: Hematocrit 30.8 % (37.0-47.0); Hemoglobin 10.0 g/dl (12.0-16.0); Imm Gran Abs Auto 0.01 X10*3/uL (0.00-0.03); Imm Gran Pct Auto 0.2 % (0.0-0.4); Lymphocytes Absolute Auto 1.5 X10*3/uL (1.2-4.9); Mean Corpuscular HGB Conc 32.5 g/dl (31.0-35.0); Mean Corpuscular Hemoglobin 30.2 pg (27.0-33.0); Mean Corpuscular Volume 93.1 fL (80.0-98.0); NRBC Abs Auto 0.000 X10*3/uL (0.0-0.012); NRBC Pct Auto 0.0 /100WBC (0.0-0.2); Platelet Count 138 X10*3/uL (160-400); Red Blood Count 3.31 X10*6/uL (4.20-5.50); White Blood Count 5.0 X10*3/uL (4.8-10.8)
[2025-05-13 06:36] LABS: Alanine Aminotransferase 58 U/L (0-31); Albumin Level 3.7 g/dL (3.5-5.0); Alkaline Phosphatase 64 U/L (39-117); Anion Gap 9 (12-20); Aspartate Amino Transferase 50 U/L (5-31); Blood Urea Nitrogen 23 mg/dL (9-16); Calcium 8.7 mg/dL (8.4-10.2); Carbon Dioxide 26 mmol/L (22-29); Chloride 111 mmol/L (96-108); Creatinine Clr Calc Pharmacy 29.2; Estimated Glomerular Filt Rate 38; Potassium 3.4 mmol/L (3.3-5.1); Sodium 143 mmol/L (135-145); Total Protein 5.6 g/dL (6.5-8.0)
[2025-05-13 06:56] LABS: HBS Num1 2.78 mIU/mL (0-7.99); HBc Num1 0.08 S/CO (0.00-0.79); HBsAGNum1 0.36 S/CO (0.00-0.99); Hepatitis A Antibody IgM 0.26 Index (0-0.79); Hepatitis B Surface Antigen Negative (Negative); ~HepC Num1 0.06 S/CO (0.00-0.79); ~Hepatitis A Antibody IgM Nonreactive (Nonreactive); ~Hepatitis B Surface Antibody NONREACTIVE (Nonreactive); ~Hepatitis C Antibody Nonreactive (Nonreactive)
[2025-05-13 07:44] VITALS: BP 133/77; PULSE 77; RESP 18; TEMP 36.1; O2SAT 98
[2025-05-13] MEDS: 0.9 % Sodium Chloride Flush 3 ML SYRINGE IVFLUSH (09:34)
[2025-05-13 11:59] VITALS: BP 140/83; PULSE 78; RESP 18; TEMP 36.4; O2SAT 96
--- NOTE | 2025-05-13 12:35 | HO.PM.IMPN ---
Subjective Subjective Date of Service: 05/13/25 Interval History: Patient seen and examined at bedside this morning, patient this time is poorly verbal, creatinine improving. No acute overnight events. Review of Systems Review of Systems: Yes Unobtainable due to mental status Physical Exam Exam: Exam: General: AxOx0, No acute distress, poorly verbal Head: AT/NC ENT: Moist mucous membranes Neck: supple CVS; RRR, S1 S2 normal Lungs: Clear bilateral breath sounds, no wheezes or crackles Abd: Soft non tender, non distended Ext: No edema and no calf tenderness MSK: moving all 4 limbs Skin: No cyanosis or edema Psych: Cooperative with exam Neurology: no focal deficit Vital Signs: Vital Signs: Last Vital Signs Temp 97.6 F 05/13/25 11:59 Pulse 78 05/13/25 11:59 Resp 18 05/13/25 11:59 BP 140/83 H 05/13/25 11:59 Pulse Ox 96 05/13/25 11:59 O2 Del Method Room Air 05/13/25 11:59 BMI result Body Mass Index 26.5 Objective Data Active Medications Acetaminophen (Acetaminophen 325 Mg Tablet) 650 mg PO Q6H PRN PRN Reason: Pain, Mild 1-3,fever,headache Amlodipine Besylate (Amlodipine Besylate 5 Mg Tablet) 5 mg PO DAILY [facility]; Protocol Atorvastatin Calcium (Atorvastatin Calcium 80 Mg Tablet) 80 mg PO BEDTIME [facility] Last Admin: 05/12/25 22:35 Dose: 80 mg Documented By: MONIKA Calcium Carbonate (Calcium Carbonate 750 Mg Tab.Chew) 750 mg PO Q4H PRN PRN Reason: Heartburn Docusate Sodium (Docusate Sodium 100 Mg Capsule) 100 mg PO BID PRN PRN Reason: Constipation Donepezil HCl (Donepezil Hcl 10 Mg Tablet) 10 mg PO BEDTIME [facility] Last Admin: 05/12/25 22:40 Dose: 10 mg Documented By: MONIKA Empagliflozin (Empagliflozin 10 Mg Tablet) 10 mg PO DAILY [facility] Heparin Sodium (Porcine) (Heparin Sodium,Porcine 5,000 Unit/Ml Vial) 5,000 unit SUBCUT Q8H [facility] Last Admin: 05/13/25 11:20 Dose: 5,000 unit Documented By: LEANNE Lactated Ringer's (Lr) 1,000 mls @ 100 mls/hr IVCONT .Q10H SHAKEEL Last Admin: 05/13/25 06:09 Dose: 100 mls/hr Documented By: TIAGO Magnesium Hydroxide (Milk Of Magnesia 30 Ml Oral.Susp) 30 ml PO DAILY PRN PRN Reason: Constipation Melatonin (Melatonin 3 Mg Tablet) 6 mg PO BEDTIME PRN PRN Reason: Insomnia Last Admin: 05/12/25 22:35 Dose: 6 mg Documented By: MONIKA Memantine (Memantine Hcl 5 Mg Tablet) 5 mg PO BID [facility] Last Admin: 05/13/25 09:35 Dose: 5 mg Documented By: LEANNE Metoprolol Succinate (Metoprolol Succinate Er 50 Mg Tab.Er.24h) 50 mg PO DAILY [facility]; Protocol Non-Formulary Medication (Vibegron [Gemtesa]) 75 mg PO DAILY [facility] Omeprazole (Omeprazole 20 Mg Capsule.Dr) 20 mg PO DAILY@0630 [facility] Last Admin: 05/13/25 05:48 Dose: Not Given Documented By: TIAGO Non-Admin Reason: NPO pending swallow eval Quetiapine Fumarate (Quetiapine Fumarate 25 Mg Tablet) 25 mg PO BID@0900,2100 [facility] Last Admin: 05/13/25 09:35 Dose: 25 mg Documented By: LEANNE Quetiapine Fumarate (Quetiapine Fumarate 50 Mg Tablet) 50 mg PO BEDTIME [facility] Sodium Chloride (0.9 % Sodium Chloride Flush 3 Ml Syringe) 3 ml IVFLUSH QSHIFT [facility] Last Admin: 05/13/25 09:34 Dose: 3 ml Documented By: LEANNE Labs 05/13/25 05:43 05/13/25 05:43 Labs: Laboratory Results - last 24 hr 05/12/25 05/12/25 05/12/25 12:08 12:51 15:33 MCV 95.1 MCH 30.7 MCHC 32.2 RDW 14.6 Plt Count 148 L D MPV 10.1 Immature Gran % (Auto) 0.4 Neut % (Auto) 61.4 Lymph % (Auto) 31.6 [place] % (Auto) 5.8 Eos % (Auto) 0.6 Baso % (Auto) 0.2 Lymph # (Auto) 1.5 [place] # (Auto) 0.3 Eos # (Auto) 0.0 Baso # (Auto) 0.0 Abs Immat Gran (auto) 0.02 Absolute Neuts (auto) 2.9 Absolute Nucleated RBC 0.000 Nucleated RBC % (auto) 0.0 Anion Gap Estim Creat Clear Calc Estimated GFR Random Glucose Calcium Total Bilirubin Direct Bilirubin AST ALT Alkaline Phosphatase Total Creatine Kinase 69 Troponin I High Sens 16.4 Total Protein Albumin Urine Color Yellow Urine Appearance Clear Urine pH 7.5 Ur Specific [place] 1.015 Urine Protein 30 (1+) H Urine Glucose (UA) >=1000 H Urine Ketones Negative Urine Blood Negative Urine Nitrite Negative Ur Leukocyte Esterase Trace H Urine RBC 0-2 Urine WBC 6-10 H Ur Squamous Epith Cells 0-2 Urine Bacteria None Seen Hyaline Casts 0-2 Hepatitis A IgM Ab Hep Bs Antigen Hep Bs Antibody Hep B Core Total Ab Hepatitis C Ab (EIA) Influenza Type A (PCR) NEGATIVE Influenza Type B (PCR) NEGATIVE RSV RNA Qual (PCR) NEGATIVE SARS-CoV-2 RNA (RT-PCR) NEGATIVE 05/12/25 05/13/25 16:45 05:43 MCV 93.1 MCH 30.2 MCHC 32.5 RDW 14.4 Plt Count 138 L MPV 9.9 Immature Gran % (Auto) 0.2 Neut % (Auto) 61.9 Lymph % (Auto) 30.5 [place] % (Auto) 6.6 Eos % (Auto) 0.6 Baso % (Auto) 0.2 Lymph # (Auto) 1.5 [place] # (Auto) 0.3 Eos # (Auto) 0.0 Baso # (Auto) 0.0 Abs Immat Gran (auto) 0.01 Absolute Neuts (auto) 3.1 Absolute Nucleated RBC 0.000 Nucleated RBC % (auto) 0.0 Anion Gap 10 L 9 L Estim Creat Clear Calc 25.2 29.2 Estimated GFR 32 38 Random Glucose 178 H 90 Calcium 9.0 8.7 Total Bilirubin 0.5 Direct Bilirubin 0.2 AST 50 H ALT 58 H Alkaline Phosphatase 64 Total Creatine Kinase Troponin I High Sens Total Protein 5.6 L Albumin 3.7 Urine Color Urine Appearance Urine pH Ur Specific [place] Urine Protein Urine Glucose (UA) Urine Ketones Urine Blood Urine Nitrite Ur Leukocyte Esterase Urine RBC Urine WBC Ur Squamous Epith Cells Urine Bacteria Hyaline Casts Hepatitis A IgM Ab Nonreactive Hep Bs Antigen Negative Hep Bs Antibody NONREACTIVE Hep B Core Total Ab Nonreactive Hepatitis C Ab (EIA) Nonreactive Influenza Type A (PCR) Influenza Type B (PCR) RSV RNA Qual (PCR) SARS-CoV-2 RNA (RT-PCR) Assessment and Plan (1) DEDE (acute kidney injury): Status: Acute (2) Alzheimer's dementia: Status: Acute Plan 75-year-old female with a past medical history of history, HLD, dementia, CVA, CHF, history of GI bleed; presented to the hospital with a chief complaint of abnormal labs noted the PCP's office. DEDE, likely secondary to decreased PO intake, improving -creatinine at this time 1.3 -continue IVF and avoiding nephrotoxic medications Alzheimer Dementia: Mental status at baseline. Continue home donepezil, memantine, quetiapine. Delirium precautions Hepatitis: pending right upper quadrant ultrasound. Negative acute hepatitis panel. Hypertension, chronic -Continue amlodipine, will adjust medication accordingly DVT prophylaxis: Subcu heparin Code status: DNR/DNI Total time managing care of this patient today: 35 minutes. Quality Stroke Does the patient have a stroke diagnosis?: No VTE Prior VTE?: No VTE Risk Level:: Medical - moderate - high VTE Device Contraindication: Treatment Not Indicated VTE Drug Contraindication: N/A - Med Ordered
--- NOTE | 2025-05-13 13:32 | MHC.SL.SWA ---
Speech Pathologist Impression: Mild Oropharyngeal Dysphagia Risk of Aspiration Due to: Confusion, hx dementia & CVA Dysphasia Diet Status: UPGRADE from NPO, start on NDD2/THIN Liquid Consistency and Strategies for Safe Swallow: Liquid Intake Recommendation: Thin Solid Food Consistency: Dietary Recommendations: Grnd/Mech Altered (NDD2) Additional Modifications to Solid Foods: Patient presents with mild oropharyngeal dysphagia secondary to dementia, hx CVA. No overt s/s of aspiration observed at bedside. Patient becomes distracted with feeding, at times holding liquid in her mouth or pocketing solids. She benefits from 1:1 assistance and encouragement/cues to orient to feeding throughout meals. Recommend GROUND/MECH ALTERED (NDD2) for ease of mastication d/t missing dentition, THIN liquids, pills CRUSHED in PUREE. Notified MD, RN, and RD of recommendation via secure text, requested MD to adjust diet order. Oral Medication Intake: Crushed with Puree Please contact the pharmacy regarding appropriate crushable or liquid drug formulations that are available whenever modified delivery is recommended. Supervision While Eating and Drinking for Safe Swallow: Total Assistance (1:1) Recommendation for Speech: Inpatient Speech Therapy Speech Therapy through Rehab Facility Comment: CHARGER OPERATOR will continue to follow during inpatient stay. Patient will likely need continued services after discharge. Frequency/Duration: Date Range for Service Req: Timeline to reassess: Citrix Architect Clinican/Clinical Fellow: No Supervisory Statement: I have reviewed and agree with the student/clinical fellow's documentation: N/A Speech Language Pathologist: Remedios Pham M.A., [facility]-CHARGER OPERATOR
[2025-05-13 15:31] VITALS: BP 125/68; PULSE 76; RESP 16; TEMP 36.1; O2SAT 96
[2025-05-13 20:00] VITALS: BP 165/93; PULSE 74; RESP 18; TEMP 36; O2SAT 95
[2025-05-14] VITALS (8 sets, daily range): BP systolic 112–163; BP diastolic 57–106; PULSE 66–121; RESP 16–20; TEMP 35.8–36.7; O2SAT 95–100
[2025-05-14] MEDS: Lactated Ringers 1,000 ML 100 ML IVCONT ×3 (00:23→19:44)
[2025-05-14] MEDS: Metoprolol Succinate ER 50 MG TAB.ER.24H PO (07:49)
[2025-05-14 07:55] LABS: Hematocrit 30.3 % (37.0-47.0); Hemoglobin 10.1 g/dl (12.0-16.0); Mean Corpuscular HGB Conc 33.3 g/dl (31.0-35.0); Mean Corpuscular Hemoglobin 30.3 pg (27.0-33.0); Mean Corpuscular Volume 91.0 fL (80.0-98.0); NRBC Abs Auto 0.000 X10*3/uL (0.0-0.012); NRBC Pct Auto 0.0 /100WBC (0.0-0.2); Platelet Count 149 X10*3/uL (160-400); Red Blood Count 3.33 X10*6/uL (4.20-5.50); White Blood Count 5.4 X10*3/uL (4.8-10.8)
[2025-05-14 08:06] LABS: Anion Gap 14 (12-20); Blood Urea Nitrogen 17 mg/dL (9-16); Calcium 8.8 mg/dL (8.4-10.2); Carbon Dioxide 21 mmol/L (22-29); Chloride 113 mmol/L (96-108); Creatinine Clr Calc Pharmacy 32.0; Estimated Glomerular Filt Rate 42; Potassium 3.4 mmol/L (3.3-5.1); Sodium 145 mmol/L (135-145)
--- NOTE | 2025-05-14 08:49 | MHC.CM.PN ---
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 FAM WORKING ON LTC FOR THE PAST 30 DAYS. PLAN IS DC HOME..... IF A LTC BED IS OFFERED PATIENT COULD [place] [facility] [place] AT A SNF. [facility]. DP HOME WITH FAM TRANSPORT VS LTC BED VIA BLS.
--- NOTE | 2025-05-14 10:46 | P.PNIM_ITS ---
Subjective Subjective Date of Service: 05/14/25 Interval History: Patient seen and examined at bedside this morning, patient today is more alert, responding to simple questions. Denies any complaints. Review of Systems Review of Systems: Yes Unobtainable due to mental status Physical Exam 2 Exam: Exam: General: AxOx2, No acute distress Head: AT/NC ENT: Moist mucous membranes Neck: supple CVS; RRR, S1 S2 normal Lungs: Clear bilateral breath sounds, no wheezes or crackles Abd: Soft non tender, non distended Ext: No edema and no calf tenderness MSK: moving all 4 limbs Skin: No cyanosis or edema Psych: Cooperative with exam Neurology: no focal deficit Vital Signs: Vital Signs: Last Vital Signs Temp 96.8 F 05/14/25 08:00 Pulse 121 H 05/14/25 08:00 Resp 20 05/14/25 08:00 BP 154/102 H 05/14/25 08:00 Pulse Ox 96 05/14/25 08:00 O2 Del Method Room Air 05/14/25 08:00 BMI result Body Mass Index 26.5 Objective Data Active Medications Acetaminophen (Acetaminophen 325 Mg Tablet) 650 mg PO Q6H PRN PRN Reason: Pain, Mild 1-3,fever,headache Amlodipine Besylate (Amlodipine Besylate 5 Mg Tablet) 5 mg PO DAILY [facility]; Protocol Last Admin: 05/14/25 07:50 Dose: 5 mg Documented By: LEANNE Atorvastatin Calcium (Atorvastatin Calcium 80 Mg Tablet) 80 mg PO BEDTIME [facility] Last Admin: 05/13/25 21:17 Dose: 80 mg Documented By: HIRAM Calcium Carbonate (Calcium Carbonate 750 Mg Tab.Chew) 750 mg PO Q4H PRN PRN Reason: Heartburn Docusate Sodium (Docusate Sodium 100 Mg Capsule) 100 mg PO BID PRN PRN Reason: Constipation Donepezil HCl (Donepezil Hcl 10 Mg Tablet) 10 mg PO BEDTIME [facility] Last Admin: 05/13/25 21:17 Dose: 10 mg Documented By: HIRAM Empagliflozin (Empagliflozin 10 Mg Tablet) 10 mg PO DAILY [facility] Last Admin: 05/14/25 07:50 Dose: 10 mg Documented By: LEANNE Heparin Sodium (Porcine) (Heparin Sodium,Porcine 5,000 Unit/Ml Vial) 5,000 unit SUBCUT Q8H [facility] Last Admin: 05/14/25 05:13 Dose: 5,000 unit Documented By: HIRAM Hydroxyzine HCl (Hydroxyzine Hcl 25 Mg Tablet) 25 mg PO Q8H PRN PRN Reason: Anxiety Last Admin: 05/14/25 07:50 Dose: 25 mg Documented By: LEANNE Lactated Ringer's (Lr) 1,000 mls @ 100 mls/hr IVCONT .Q10H [facility] Last Admin: 05/14/25 10:37 Dose: 100 mls/hr Documented By: LEANNE Magnesium Hydroxide (Milk Of Magnesia 30 Ml Oral.Susp) 30 ml PO DAILY PRN PRN Reason: Constipation Melatonin (Melatonin 3 Mg Tablet) 6 mg PO BEDTIME PRN PRN Reason: Insomnia Last Admin: 05/13/25 21:17 Dose: 6 mg Documented By: HIRAM Memantine (Memantine Hcl 5 Mg Tablet) 5 mg PO BID [facility] Last Admin: 05/14/25 07:50 Dose: 5 mg Documented By: LEANNE Metoprolol Succinate (Metoprolol Succinate Er 50 Mg Tab.Er.24h) 50 mg PO DAILY [facility]; Protocol Last Admin: 05/14/25 07:49 Dose: 50 mg Documented By: LEANNE Non-Formulary Medication (Vibegron [Gemtesa]) 75 mg PO DAILY [facility] Omeprazole (Omeprazole 20 Mg Capsule.Dr) 20 mg PO DAILY@0630 [facility] Last Admin: 05/14/25 05:13 Dose: 20 mg Documented By: HIRAM Quetiapine Fumarate (Quetiapine Fumarate 25 Mg Tablet) 25 mg PO BID@0900,2100 [facility] Last Admin: 05/14/25 07:50 Dose: 25 mg Documented By: LEANNE Quetiapine Fumarate (Quetiapine Fumarate 50 Mg Tablet) 50 mg PO BEDTIME [facility] Last Admin: 05/13/25 21:17 Dose: 50 mg Documented By: HIRAM Sodium Chloride (0.9 % Sodium Chloride Flush 3 Ml Syringe) 3 ml IVFLUSH QSHIFT [facility] Last Admin: 05/14/25 07:50 Dose: Not Given Documented By: LEANNE Non-Admin Reason: IV Running Labs 05/14/25 07:29 05/14/25 07:29 Labs: Laboratory Results - last 24 hr 05/14/25 07:29 MCV 91.0 MCH 30.3 MCHC 33.3 RDW 14.5 Plt Count 149 L MPV 10.1 Absolute Nucleated RBC 0.000 Nucleated RBC % (auto) 0.0 Anion Gap 14 Estim Creat Clear Calc 32.0 Estimated GFR 42 Random Glucose 120 H Calcium 8.8 Microbiology Microbiology Results: Microbiology 05/12/25 Unknown Urine Culture - Preliminary Urine clean catch - Clean Catch Midstream Culture too young to evaluate. Assessment and Plan (1) DEDE (acute kidney injury): Status: Acute (2) Alzheimer's dementia: Status: Acute Plan 75-year-old female with a past medical history of history, HLD, dementia, CVA, CHF, history of GI bleed; presented to the hospital with a chief complaint of abnormal labs noted the PCP's office. found to have an DEDE, improved with IV fluids DEDE, likely secondary to decreased PO intake, improving -creatinine improving at this time 1.2 -continue IVF and avoiding nephrotoxic medications Alzheimer Dementia: Mental status at baseline. Continue home donepezil, memantine, quetiapine. Delirium precautions Hepatitis: CT scan showing liver with numerous cysts in liver, suggested on CT w/ contrast, however at this time recently experiencing DEDE. Negative acute hepatitis panel. will require outpatient follow up Hypertension, chronic -Continue amlodipine, will adjust medication accordingly DVT prophylaxis: Subcu heparin Code status: DNR/DNI Total time managing care of this patient today: 35 minutes. Quality Stroke Does the patient have a stroke diagnosis?: No VTE Prior VTE?: No VTE Risk Level:: Medical - moderate - high VTE Device Contraindication: Treatment Not Indicated VTE Drug Contraindication: N/A - Med Ordered
--- NOTE | 2025-05-14 12:32 | P.CDIM_ITS ---
PROVIDER RESPONSE TEXT: To clarify, the appropriate diagnosis supported by the clinical indicators: Systolic: chronic QUERY TEXT: PHYSICIAN'S DOCUMENTATION REQUEST Date of Query: 05/14/2025 12:13 PM EST Patient Name: Savanah Tobias Admit Date: 05/13/2025 Dear Geovanni Jacques MD, A review of the medical record indicates additional documentation may be needed. Please review below and update the documentation accordingly. Clinical Indicators: ED 05/12/25 - History of Congestive heart failure Progress notes - 75 year old with past medical history of dementia, CVA, CHF. No lower extremity edema. Please provide further specificity regarding the most likely type and acuity of the documented CHF: Systolic Please specify if Acute, Chronic, or Acute on chronic, or Unable to determine Diastolic Please specify if Acute, Chronic, or Acute on chronic, or Unable to determine Combined Systolic/Diastolic Please specify if Acute, Chronic, or Acute on chronic, or Unable to determine After study CHF is ruled out Other (explain) Clinically unable to determine (explain) Thank you, Effie Fontenot, CCS, CDIS Use of terms such as suspected, likely, concern for, or probable (associated with a specific diagnosis that is being evaluated, monitored, or treated as if it exists) are acceptable and can be coded in the inpatient setting, when documented at the time of discharge. Please use your independent medical judgment in providing your response. THIS QUERY IS PART OF THE PERMANENT MEDICAL RECORD
--- NOTE | 2025-05-14 14:51 | MHC.SL.SWA ---
Speech Pathologist Impression: Risk of Aspiration Due to: Dysphasia Diet Status: Continue on Ground/Mechanical (NDD2) with thin liquids, pills whole or crushed in puree. Allow family to provide familiar foods from home/outside. Liquid Consistency and Strategies for Safe Swallow: Liquid Intake Recommendation: Thin Liquid Intake Strategies: Small Sips Solid Food Consistency: Dietary Recommendations: Grnd/Mech Altered (NDD2) Additional Modifications to Solid Foods: Oral Medication Intake: Crushed with Puree Please contact the pharmacy regarding appropriate crushable or liquid drug formulations that are available whenever modified delivery is recommended. Compensatory Strategies and Precautions to be Taken for Safe Swallow: Sitting Upright (90 deg) Liquids from Cup Liquids from Straw Small Bites and Sips Alternate Liquids/Solids Oral Check Supervision While Eating and Drinking for Safe Swallow: Total Assistance (1:1) Foods to Avoid: Tough, difficult to chew solids. Swallowing Recommended Treatments: Compens. Strategy Educat. Recommendation for Speech: Inpatient Speech Therapy Speech Therapy through Rehab Facility Comment: Patient seen at lunch for toleration of recommended diet. Patient was communicated with in Azeri, there was also a Azeri speaking EVS MANAGER present and at end of session, patient's daughter was present. Patient was seated in chair beside bed, tray was set up on table in front of her. Patient offered bites of ground chicken, mashed potatoes and carrots. Patient initially tolerated all consistencies, and produced munch on ground meat. As meal progressed, patient noted to remove pieces of unchewed chicken from mouth and hold. Daughter reported this is a chronic issues, stated she has to be told it is food. However, patient still reluctant to return 'retrieved pieces to mouth. Patient also initially tolerated mashed consistencies, then rejected, with daughter also noting that she generally does not like this texture and that she is sensitive to textures EVS MANAGER also reported son had questioned diet, as she eats everything, though when family queried, she will eat softer foods (rice and beans) prepared at home. Given diet options available at [facility], patient is believed to be on an appropriate and safe diet for her, with other options considered and discussed with daughter, but believed to put patient at risk for getting inappropriate food/texture. RAIL CAR WELDER agreed/recommended that family be allowed to bring food prepared at home or outside that are more familiar and are known that patient will tolerate to supplement current diet offered by hospital. RAIL CAR WELDER will continue to follow. Frequency/Duration: Date Range for Service Req: Timeline to reassess: Armor Reconnaissance Vehicle Driver Clinican/Clinical Fellow: No Supervisory Statement: I have reviewed and agree with the student/clinical fellow's documentation: N/A Speech Language Pathologist: Veda Porter M.A., CCC-RAIL CAR WELDER
[2025-05-15 03:41] VITALS: PULSE 82; RESP 18; TEMP 36.1; O2SAT 96
--- NOTE | 2025-05-15 03:56 | MHC.PIE ---
p; pt anxious and restless, pt trying to pull out iv and jumping out of bed. note; prn atarax q8 given at 0130. i; MILY balderas notified. new order ativan po once e; will cont to monitor
[2025-05-15] MEDS: Lactated Ringers 1,000 ML 100 ML IVCONT (04:00)
--- NOTE | 2025-05-15 06:08 | PC.NURSE ---
pt trying to jump out of bed multiple times throughout this shift, sitter at bed side to redirect pt with mix result - 4 staff to direct pt back to bed at times. scheduled and prn meds for anxiety given with good but short result, PA notified with onetime dose given. will cont to monitor
[2025-05-15 07:36] VITALS: BP 150/83; PULSE 77; RESP 18; TEMP 36.6; O2SAT 97
[2025-05-15 09:18] LABS: Anion Gap 10 (12-20); Blood Urea Nitrogen 14 mg/dL (9-16); Calcium 8.7 mg/dL (8.4-10.2); Carbon Dioxide 26 mmol/L (22-29); Chloride 113 mmol/L (96-108); Creatinine Clr Calc Pharmacy 32.3; Estimated Glomerular Filt Rate 43; Potassium 3.2 mmol/L (3.3-5.1); Sodium 146 mmol/L (135-145)
[2025-05-15 09:24] VITALS: BP 156/76; PULSE 82
[2025-05-15] MEDS: 0.9 % Sodium Chloride Flush 3 ML SYRINGE IVFLUSH (09:24)
[2025-05-15] MEDS: Metoprolol Succinate ER 50 MG TAB.ER.24H PO (09:24)
--- NOTE | 2025-05-15 12:11 | MHC.SL.SWA ---
Speech Pathologist Impression: Risk of Aspiration, Oropharyngeal Dysphagia Risk of Aspiration Due to: Confusion Dysphasia Diet Status: Continue on Ground/Mechanical (NDD2) with thin liquids, pills whole or crushed in puree. Allow family to provide familiar foods from home/outside. Liquid Consistency and Strategies for Safe Swallow: Liquid Intake Recommendation: Thin Liquid Intake Strategies: Small Sips Solid Food Consistency: Dietary Recommendations: Grnd/Mech Altered (NDD2) Additional Modifications to Solid Foods: Patient's family reports she is able to feed herself at home, but needs someone there prompting her. Patient attempts to feed herself and family would like her to be encouraged independence when possible. Patient to have direct supervision with all PO intake and will need assistance throughout (i.e. with opening containers, reaching/arranging containers, handing patient utensils, and cuing). Oral Medication Intake: Crushed with Puree Please contact the pharmacy regarding appropriate crushable or liquid drug formulations that are available whenever modified delivery is recommended. Compensatory Strategies and Precautions to be Taken for Safe Swallow: Sitting Upright (90 deg) Liquids from Cup Liquids from Straw Small Bites and Sips Alternate Liquids/Solids Oral Check Supervision While Eating and Drinking for Safe Swallow: Direct Supervision (1:1) Foods to Avoid: Tough, difficult to chew solids. Swallowing Recommended Treatments: Compens. Strategy Educat. Recommendation for Speech: Inpatient Speech Therapy Speech Therapy through Rehab Facility Finisher Denture Clinican/Clinical Fellow: No Supervisory Statement: I have reviewed and agree with the student/clinical fellow's documentation: N/A Speech Language Pathologist: Remedios Pham M.A., CCC-CASH CONTROLLER
--- NOTE | 2025-05-15 12:23 | P.PNIM_ITS ---
Subjective Subjective Date of Service: 05/15/25 Interval History: Patient seen examined at bedside this morning, patient resting comfortably in bed, patient states that she is feeling well, we will give short answers. No concerns voiced by the nursing staff. Awaiting for final urine culture. Review of Systems Review of Systems: Yes all other systems are reviewed and are negative Physical Exam 2 Exam: Exam: General: AxOx1, No acute distress Head: AT/NC ENT: Moist mucous membranes Neck: supple CVS; RRR, S1 S2 normal Lungs: Clear bilateral breath sounds, no wheezes or crackles Abd: Soft non tender, non distended Ext: No edema and no calf tenderness MSK: moving all 4 limbs Skin: No cyanosis or edema Psych: Cooperative with exam Neurology: no focal deficit Vital Signs: Vital Signs: Last Vital Signs Temp 97.9 F 05/15/25 07:36 Pulse 82 05/15/25 09:24 Resp 18 05/15/25 07:36 BP 156/76 H 05/15/25 09:24 Pulse Ox 97 05/15/25 07:36 O2 Del Method Room Air 05/15/25 07:36 BMI result Body Mass Index 26.5 Objective Data Active Medications Acetaminophen (Acetaminophen 325 Mg Tablet) 650 mg PO Q6H PRN PRN Reason: Pain, Mild 1-3,fever,headache Amlodipine Besylate (Amlodipine Besylate 5 Mg Tablet) 5 mg PO DAILY [facility]; Protocol Last Admin: 05/15/25 09:24 Dose: 5 mg Documented By: KLAUDIA Atorvastatin Calcium (Atorvastatin Calcium 80 Mg Tablet) 80 mg PO BEDTIME [facility] Last Admin: 05/14/25 19:47 Dose: 80 mg Documented By: HIRAM Calcium Carbonate (Calcium Carbonate 750 Mg Tab.Chew) 750 mg PO Q4H PRN PRN Reason: Heartburn Docusate Sodium (Docusate Sodium 100 Mg Capsule) 100 mg PO BID PRN PRN Reason: Constipation Donepezil HCl (Donepezil Hcl 10 Mg Tablet) 10 mg PO BEDTIME [facility] Last Admin: 05/14/25 19:47 Dose: 10 mg Documented By: HIRAM Empagliflozin (Empagliflozin 10 Mg Tablet) 10 mg PO DAILY [facility] Last Admin: 05/15/25 09:24 Dose: 10 mg Documented By: KLAUDIA Heparin Sodium (Porcine) (Heparin Sodium,Porcine 5,000 Unit/Ml Vial) 5,000 unit SUBCUT Q8H [facility] Last Admin: 05/15/25 03:53 Dose: 5,000 unit Documented By: HIRAM Hydroxyzine HCl (Hydroxyzine Hcl 25 Mg Tablet) 25 mg PO Q8H PRN PRN Reason: Anxiety Last Admin: 05/15/25 01:38 Dose: 25 mg Documented By: HIRAM Lactated Ringer's (Lr) 1,000 mls @ 100 mls/hr IVCONT .Q10H [facility] Last Admin: 05/15/25 04:00 Dose: 100 mls/hr Documented By: HIRAM Magnesium Hydroxide (Milk Of Magnesia 30 Ml Oral.Susp) 30 ml PO DAILY PRN PRN Reason: Constipation Melatonin (Melatonin 3 Mg Tablet) 6 mg PO BEDTIME PRN PRN Reason: Insomnia Last Admin: 05/14/25 19:47 Dose: 6 mg Documented By: HIRAM Memantine (Memantine Hcl 5 Mg Tablet) 5 mg PO BID [facility] Last Admin: 05/15/25 09:23 Dose: 5 mg Documented By: KLAUDIA Metoprolol Succinate (Metoprolol Succinate Er 50 Mg Tab.Er.24h) 50 mg PO DAILY [facility]; Protocol Last Admin: 05/15/25 09:24 Dose: 50 mg Documented By: KLAUDIA Non-Formulary Medication (Vibegron [Gemtesa]) 75 mg PO DAILY [facility] Omeprazole (Omeprazole 20 Mg Capsule.Dr) 20 mg PO DAILY@0630 [facility] Last Admin: 05/15/25 09:23 Dose: 20 mg Documented By: KLAUDIA Quetiapine Fumarate (Quetiapine Fumarate 25 Mg Tablet) 25 mg PO BID@0900,2100 [facility] Last Admin: 05/15/25 09:23 Dose: 25 mg Documented By: KLAUDIA Quetiapine Fumarate (Quetiapine Fumarate 50 Mg Tablet) 50 mg PO BEDTIME [facility] Last Admin: 05/14/25 19:47 Dose: 50 mg Documented By: HIRAM Sodium Chloride (0.9 % Sodium Chloride Flush 3 Ml Syringe) 3 ml IVFLUSH QSHIFT [facility] Last Admin: 05/15/25 09:24 Dose: 3 ml Documented By: KLAUDIA Labs 05/14/25 07:29 05/15/25 08:56 Labs: Laboratory Results - last 24 hr 05/15/25 08:56 Anion Gap 10 L Estim Creat Clear Calc 32.3 Estimated GFR 43 Random Glucose 128 H Calcium 8.7 Microbiology Microbiology Results: Microbiology 05/12/25 Unknown Urine Culture - Final Urine clean catch - Clean Catch Midstream Assessment and Plan (1) DEDE (acute kidney injury): Status: Acute (2) Alzheimer's dementia: Status: Acute Plan 75-year-old female with a past medical history of history, HLD, dementia, CVA, CHF, history of GI bleed; presented to the hospital with a chief complaint of abnormal labs noted the PCP's office. found to have an DEDE, improved with IV fluids. with urine culture negative. DEDE, likely secondary to decreased PO intake, resolved -creatinine improving at this time 1.2, stable -no longer requires IVf, continue to avoid nephrotoxic medications Alzheimer Dementia: Mental status at baseline. Continue home donepezil, memantine, quetiapine. Delirium precautions Hepatitis: CT scan showing liver with numerous cysts in liver, suggested on CT w/ contrast, however at this time recently experiencing DEDE. Negative acute hepatitis panel. will require outpatient follow up Hypertension, chronic -Continue amlodipine, will adjust medication accordingly DVT prophylaxis: Subcu heparin Code status: DNR/DNI Total time managing care of this patient today: 35 minutes. Quality Stroke Does the patient have a stroke diagnosis?: No VTE Prior VTE?: No VTE Risk Level:: Medical - moderate - high VTE Device Contraindication: Treatment Not Indicated VTE Drug Contraindication: N/A - Med Ordered
--- NOTE | 2025-05-15 13:27 | PM.DS ---
DS: Providers Provider Date of Service: 05/15/25 Date of admission: 05/12/25 19:39 Date of discharge: 05/15/25 Primary care physician: Lorene Larson NP Attending physician on discharge: Geovanni Jacques Discharging clinician: Geovanni Jacques DS: Diagnosis Discharge Diagnosis (1) DEDE (acute kidney injury): Status: Acute (2) Alzheimer's dementia: Status: Acute DS: Summary Hospital Course Hospital Course: 75-year-old female with a past medical history of history, HLD, dementia, CVA, CHF, history of GI bleed; presented to the hospital with a chief complaint of abnormal labs noted the PCP's office. found to have an DEDE, improved with IV fluids. with urine culture negative. at this time creatinine stable DEDE, likely secondary to decreased PO intake, resolved -creatinine improving at this time 1.2, stable -no longer requires IVf, continue to avoid nephrotoxic medications -encourage PO fluid intake Alzheimer Dementia: Mental status at baseline. Continue home donepezil, memantine, quetiapine. Delirium precautions Hepatitis: CT scan showing liver with numerous cysts in liver, suggested on CT w/ contrast, however at this time recently experiencing DEDE. Negative acute hepatitis panel. will require outpatient follow up Hypertension, chronic -Continue amlodipine, adjust as outpatient, given DEDE to consider increasing BP medication. Time Attestation Discharge Coordination Time (in mins): 35 minutes Quality: Safe Use of Opioids Does Pt have an Active Cancer Diagnosis on the Problem List?: No Quality: Stroke Does the patient have a stroke diagnosis?: No Physical Exam Exam: Exam: General: AxOx1, No acute distress Head: AT/NC ENT: Moist mucous membranes Neck: supple CVS; RRR, S1 S2 normal Lungs: Clear bilateral breath sounds, no wheezes or crackles Abd: Soft non tender, non distended Ext: No edema and no calf tenderness MSK: moving all 4 limbs Skin: No cyanosis or edema Psych: Cooperative with exam Neurology: no focal deficit Vital Signs: Vital Signs: Last Vital Signs Temp 97.9 F 05/15/25 07:36 Pulse 82 05/15/25 09:24 Resp 18 05/15/25 07:36 BP 156/76 H 05/15/25 09:24 Pulse Ox 97 05/15/25 07:36 O2 Del Method Room Air 05/15/25 07:36 BMI result Body Mass Index 26.5 DS: Data Data Completed and Pending Labs on day of discharge: Laboratory Results - last 24 hr 05/15/25 08:56 Sodium 146 H Potassium 3.2 L Chloride 113 H Carbon Dioxide 26 Anion Gap 10 L BUN 14 Creatinine 1.23 Estim Creat Clear Calc 32.3 Estimated GFR 43 Random Glucose 128 H Calcium 8.7 Discharge Plan Discharge Anticipated Discharge Date/Time: 05/15/25 14:19 Patient Disposition: Home, Self-Care Discharge Diagnosis: Acute kidney injury Referrals: Lorene Larson NP [Primary Care Provider, Medical] - 1 Week Discharge Medications: Continued quetiapine 25 mg tablet 25 mg PO BID@0900,2100 metoprolol succinate 50 mg tablet extended release 24 hr 50 mg PO DAILY donepezil 10 mg tablet 10 mg PO BEDTIME amlodipine 5 mg tablet 5 mg PO DAILY pantoprazole 40 mg tablet,delayed release (DR/EC) 40 mg PO DAILY ferrous sulfate 325 mg (65 mg iron) tablet 325 mg PO Q2D@0900 docusate sodium 100 mg capsule 100 mg PO BID PRN (Reason: Constipation) rosuvastatin 20 mg tablet 20 mg PO BEDTIME memantine 5 mg tablet 5 mg PO BID quetiapine 50 mg tablet 50 mg PO BEDTIME Gemtesa 75 mg tablet 75 mg PO DAILY Vicks Pure Zzzs Kidz 2 gummy PO BEDTIME PRN (Reason: Sleep) Patient Comments: 2 Gummies=1 mg melatonin + 110 mg mag citrate Held dapagliflozin propanediol [Farxiga] 10 mg tablet 10 mg PO DAILY Hold Instructions: Resume on 05/20/25. restart after visiting PCP Discharge Orders: Discharge Order (Routine); Ordered 05/15/25 Ordered By: Geovanni Jacques Activity on Discharge: As tolerated Stand Alone Forms: Patient Portal Discharge page Print Language: Bulgarian Activity Restrictions/Additional Instructions: At this time she is not in liver failure and has no abnormality noted on CT scan of the liver She did have dehydration but not renal failure and there was nothing obstructing her blocking her kidneys She has no urinary tract infection She was given IV fluids and repeated her kidney function with great improvement, continue to push hydration on her Repeat her kidney function test with primary care doctor by Sunday Return for any worsening symptoms, fever greater than 100.4, confusion, increased pain or any other concerns Her CT scan did show mild constipation continue her regimen there was no obstruction I would continue to hold the metformin until the repeat kidney function test at the end of this week Chest x-ray was normal Care Plan Goals: continue encouraging PO fluid intake Follow up with PCP as outpatient Health Concerns: acute kidney injury secondary to dehydriation Plan of Treatment: encourage PO fluid intake, at least 1.5L per day follow up with PCP Assessment: 75-year-old female with a past medical history of history, HLD, dementia, CVA, CHF, history of GI bleed; presented to the hospital with a chief complaint of abnormal labs noted the PCP's office. found to have an DEDE, improved with IV fluids. with urine culture negative. at this time creatinine stable Patient Instructions: Constipation (ED), Dehydration (ED)
[2025-05-15] MEDS: Potassium Chloride Packet 20 MEQ PACKET 40 MEQ PO (13:34)
--- NOTE | 2025-05-15 14:03 | MHC.CM.PN ---
IMM 05/13/25 Patient is discharged today to home. Services that were already in place will resume: [facility], Private pay ELECTRICAL TESTS SUPERVISOR and [facility]. Contact information for [facility] facilities provided to the patients dtr. The facilities were provided the contact info for the Dtr, Brooke Layne. Family will provide transport home today.
[2025-05-15 15:14] VITALS: BP 140/72; PULSE 88; RESP 16; TEMP 36.6; O2SAT 98
--- NOTE | 2025-05-15 15:52 | PC.NURSE ---
Pt discharged home with son. Son states pt ambulates about a mile a day with him and is independent at home. PLATFORM SOFTWARE ENGINEER states pt able to get OOB to commode with 1 assist for instructions and occasional assist with pericare.
== END 2025-05-15 15:49 | disposition home or self-care (01) | DRG 683 ==
LOC: HO.ED 16:46 → HO.EDOVER 19:53 → HO.S3 05-13 01:19
PROVIDERS: Emergency Medicine; Physician Assistant Medical; Admitting Provider Hospitalist; Emergency Provider Emergency Medicine; PCP Nurse Practitioner Family; Visit Provider Student in an Organized Health Care Education/Training Program
DX: N17.9 Acute kidney failure, unspecified (principal); I50.22 Chronic systolic (congestive) heart failure; G30.9 Alzheimer's disease, unspecified; F02.80 Dementia in other diseases classified elsewhere, unspecified severity, without behavioral disturbance, psychotic disturbance, mood disturbance, and anxiety; Z66 Do not resuscitate; I11.0 Hypertensive heart disease with heart failure; K76.89 Other specified diseases of liver; E86.0 Dehydration; Z20.822 Contact with and (suspected) exposure to COVID-19; Z79.899 Other long term (current) drug therapy
CPT/HCPCS: 36415; 71045; 74176; 76705; 80048; 80076; 81001; 82550; 83690; 83735; 84484; 85025; 85027; 86704; 86706; 86709; 86803; 87086; 87340; 87637; 92507; 92610; 93005; 99285; J1644; J2359; J7120

== ENCOUNTER → 2025-05-12 11:50 | Outpatient (BNV) | payer OTHER, SELFPAY | PROVIDERS: Emergency Provider Emergency Medicine; PCP Nurse Practitioner Family; Visit Provider Internal Medicine | DX: R94.31 Abnormal electrocardiogram [ECG] [EKG] (principal); R79.89 Other specified abnormal findings of blood chemistry | CPT/HCPCS: 93010 ==

== ENCOUNTER → 2025-05-12 12:42 | Outpatient (BNV) | payer OTHER, SELFPAY | PROVIDERS: Emergency Provider Emergency Medicine; PCP Nurse Practitioner Family; Visit Provider Radiology Diagnostic Radiology | DX: K59.00 Constipation, unspecified (principal); R53.1 Weakness | CPT/HCPCS: 71045; 74176 ==

== ENCOUNTER 2025-05-12 19:39 | Outpatient (BNV) | payer OTHER, SELFPAY | END 2025-05-13 14:58 | PROVIDERS: Admitting Provider Hospitalist; Emergency Provider Emergency Medicine; PCP Nurse Practitioner Family; Visit Provider Radiology Diagnostic Radiology | DX: K76.89 Other specified diseases of liver (principal) | CPT/HCPCS: 76705 ==

== ENCOUNTER → 2025-05-12 19:39 | Outpatient (BNV) | payer OTHER, SELFPAY | PROVIDERS: Admitting Provider Hospitalist; Emergency Provider Emergency Medicine; PCP Nurse Practitioner Family; Visit Provider Student in an Organized Health Care Education/Training Program | DX: N17.9 Acute kidney failure, unspecified (principal); G30.9 Alzheimer's disease, unspecified; F02.80 Dementia in other diseases classified elsewhere, unspecified severity, without behavioral disturbance, psychotic disturbance, mood disturbance, and anxiety | CPT/HCPCS: 99223; 99232 ==